=== PATIENT | male | born 1990 | race Caucasian/White ===

== ENCOUNTER 2019-12-12 23:25 | Emergency (ER) | payer SELFPAY ==
--- NOTE | 2019-12-12 23:46 | ER Document Report ---
ED Medical Screen (RME) - General Chief Complaint: Medical Clearance Stated Complaint: MEDICAL CLEARANCE Time Seen by Provider: 12/12/19 23:39 Primary Care Provider: ASIM JOYNER [Primary Care Provider] - Follow up as needed - HPI Notes: 12/12/19 23:44 28-year-old male to the emergency department with complaints of alcohol abuse and "psychosis". States he has been using alcohol since he was age 11. He states that currently he uses about half a bottle of vodka every single day. He states that when he tries to stop drinking alcohol he hears voices. He states that the voices do not tell him to hurt himself or others. He states that sometimes the voices will just last for a little while but then sometimes the last for days. He states that the last time he had versus was in September 2019. He states that he has been drinking today. He denies any SI or HI. I performed a brief medical screening exam on the patient determined that the patient needs further evaluation and management by main side provider. I have placed initial orders to help expedite care. Physical Exam - Vital signs Vitals: Temp Pulse Resp BP Pulse Ox 98.3 F 118 H 18 149/95 H 97 12/12/19 23:36 12/12/19 23:36 12/12/19 23:36 12/12/19 23:36 12/12/19 23:36 Course - Vital Signs Vital signs: Temp Pulse Resp BP Pulse Ox 98.3 F 118 H 18 149/95 H 97 12/12/19 23:36 12/12/19 23:36 12/12/19 23:36 12/12/19 23:36 12/12/19 23:36 Doctor's Discharge - Discharge Referrals: ASIM JOYNER [Primary Care Provider] - Follow up as needed
[2019-12-13 00:30] LABS: ABSOLUTE EOSINOPHILS # (AUTO) 0.2 10^3/uL (0.0-0.6); ABSOLUTE LYMPHOCYTES (AUTO) 3.7 10^3/uL (0.5-4.7); ABSOLUTE MONOCYTES (AUTO) 0.7 10^3/uL (0.1-1.4); ABSOLUTE NEUT (AUTO) 3.1 10^3/uL (1.7-8.2); BASOPHILS % (AUTO) 0.5 % (0-2); EOSINOPHILS % (AUTO) 2.8 % (0-6); HEMATOCRIT 42.7 % (37.9-51.0); HEMOGLOBIN 14.5 g/dL (13.5-17.0); LYMPHOCYTES % (AUTO) 47.4 % (13-45); MEAN CORPUSCULAR HEMOGLOBIN 31.8 pg (27.0-33.4); MEAN CORPUSCULAR HGB CONC 34.1 g/dL (32.0-36.0); MEAN CORPUSCULAR VOLUME 94 fl (80-97); MONOCYTES % (AUTO) 8.9 % (3-13); PLATELET COUNT 215 10^3/uL (150-450); RED BLOOD COUNT 4.57 10^6/uL (4.35-5.55); RED CELL DISTRIBUTION WIDTH 13.9 % (11.5-14.0); SEGMENTED NEUTROPHILS % (AUTO) 40.4 % (42-78); TOTAL CELLS COUNTED % (AUTO) 100 %; WHITE BLOOD COUNT 7.8 10^3/uL (4.0-10.5)
[2019-12-13 00:41] LABS: ALBUMIN 4.6 g/dL (3.5-5.0); ALKALINE PHOSPHATASE 67 U/L (38-126); ANION GAP 12 (5-19); ASPARTATE AMINO TRANSFERASE 37 U/L (17-59); BILIRUBIN,DIRECT 0.3 mg/dL (0.0-0.4); BILIRUBIN,TOTAL 0.5 mg/dL (0.2-1.3); BLOOD UREA NITROGEN 10 mg/dL (7-20); CALCIUM 8.9 mg/dL (8.4-10.2); CARBON DIOXIDE 31 mmol/L (22-30); CHLORIDE 102 mmol/L (98-107); GLUCOSE 98 mg/dL (75-110); POTASSIUM 3.9 mmol/L (3.6-5.0); TOTAL PROTEIN 7.7 g/dL (6.3-8.2)
[2019-12-13 00:52] LABS: ALCOHOL 423 mg/dL (NONE DETECTED)
[2019-12-13] MEDS ORDERED: NORMAL SALINE 1000 ML 1,000 ML IV ONE (01:10)
--- NOTE | 2019-12-13 02:47 | ER Document Report ---
ED Substance Abuse / Acc. OD - General TRAVEL OUTSIDE OF THE [place] IN LAST 30 DAYS: No - Related Data Home Medications: prozac, hydroxyzine, seroquel <HOA SMITH - Last Filed: 12/13/19 06:46> <VALORE - Last Filed: 12/13/19 14:04> - General Chief Complaint: ETOH Abuse Stated Complaint: MEDICAL CLEARANCE Time Seen by Provider: 12/12/19 23:39 Notes: Patient is a 28 year old male that comes to the emergency department for chief complaint of alcohol intoxication and wanting detox. Patient states that he was driven here by his mother and that "my mom wants me to get detox". I asked him if he wants detox, patient states "probably". Patient states he has been using alcohol since he was 11 years old, he states that he has had detox before in the past, he states that when he does not drink he feels "awful" but he denies withdrawal symptoms including vomiting, shaking, seizures. Patient states that when he stops drinking sometimes he hears voices but he denies hallucinations at this time. He denies SI or HI. He denies any daily medications. He denies recreational drugs. (HOA SMITH) - Related Data Allergies/Adverse Reactions: No Known Allergies Allergy (Unverified 12/13/19 00:15) Past Medical History - General Information source: Patient - Social History Smoking Status: Current Every Day Smoker Frequency of alcohol use: 1/2 bottle vodka daily for 10 yrs Drug Abuse: None Lives with: Family Family History: Reviewed & Not Pertinent Patient has suicidal ideation: No Patient has homicidal ideation: No - Immunizations Immunizations up to date: Yes Hx Diphtheria, Pertussis, Tetanus Vaccination: Yes <HOA SMITH - Last Filed: 12/13/19 06:46> Review of Systems - Review of Systems Constitutional: No symptoms reported EENT: No symptoms reported Cardiovascular: No symptoms reported Respiratory: No symptoms reported Gastrointestinal: No symptoms reported Genitourinary: No symptoms reported Male Genitourinary: No symptoms reported Musculoskeletal: No symptoms reported Skin: No symptoms reported Hematologic/Lymphatic: No symptoms reported Neurological/Psychological: See HPI <HOA SMITH - Last Filed: 12/13/19 06:46> Physical Exam <HOA SMITH - Last Filed: 12/13/19 06:46> - Vital signs Vitals: Temp Pulse Resp BP Pulse Ox 98.3 F 118 H 18 149/95 H 97 12/12/19 23:36 12/12/19 23:36 12/12/19 23:36 12/12/19 23:36 12/12/19 23:36 - Notes Notes: GENERAL: Sleeping but arouses easily to voice, responds to questions appropriately, calm. Smell of alcohol, slightly slurring words HEAD: Normocephalic, atraumatic. EYES: Pupils equal, round, and reactive to light. Extraocular movements intact. ENT: Oral mucosa dry, tongue midline. Oropharynx unremarkable. Airway patent. NECK: Full range of motion. Supple. Trachea midline. LUNGS: Clear to auscultation bilaterally, no wheezes, rales, or rhonchi. No respiratory distress. HEART: Regular rate and rhythm. No murmur ABDOMEN: Soft, non-tender. Non-distended. EXTREMITIES: Moves all 4 extremities spontaneously. No edema, normal radial and dorsalis pedis pulses bilaterally. No cyanosis. BACK: no cervical, thoracic, lumbar midline tenderness. No saddle anesthesia, normal distal neurovascular exam. Moves all extremities in full range of motion. NEUROLOGICAL: Alert and oriented to person, place, events. Slurring some words. Cranial nerves II through XII grossly intact. PSYCH: Poor eye contact and does not give details without asking very specific questions, otherwise unremarkable SKIN: Warm, dry, normal turgor. No rashes or lesions noted. (HOA SMITH) Course - Laboratory Result Diagrams: 12/13/19 00:10 12/13/19 00:10 <HOA SMITH - Last Filed: 12/13/19 06:46> - Laboratory Result Diagrams: 12/13/19 00:10 12/13/19 00:10 <LORE DE DIOS - Last Filed: 12/13/19 14:04> - Re-evaluation Re-evalutation: Patient is obviously intoxicated and telling me he is intoxicated. He is here for detox and states that he supposes he wants to go through with this. He denies SI or HI, patient is cooperative, patient sleeping unless I speak to him, he responds easily just to verbal stimuli. He also spontaneously awakens on occasion. Vital signs showing borderline tachycardia, he was given IV fluids, this did improve afterwards. CBC unremarkable, chemistry unremarkable including LFTs and sodium. Alcohol is very high at 432. Patient is too intoxicated to go to detox at this point, he will have to be monitored until he is more sober before he can be placed as he is requesting. I did discuss this with patient and he states appreciation and agreement with this plan. 12/13/19 06:46 Patient is much more sober now, however I estimate that it will be about 11 AM before his blood alcohol content is low enough for him to be placed in detox. Patient is asking about the details of last night. He states that he definitely needs detox and he is appreciative. He has no other complaints at this time. Patient pending medical clearance so he can go to detox. (HOA SMITH) - Vital Signs Vital signs: Temp Pulse Resp BP Pulse Ox 98.5 F 115 H 16 103/64 100 12/13/19 08:49 12/13/19 08:49 12/13/19 08:49 12/13/19 08:49 12/13/19 08:49 - Laboratory Laboratory results interpreted by me: 12/13/19 12/13/19 12/13/19 00:10 00:10 00:10 Lymph % (Auto) 47.4 H Seg Neutrophils % 40.4 L Carbon Dioxide 31 H Creatinine 0.44 L Salicylates < 1.0 L Acetaminophen < 10 L Serum Alcohol 423 H* - EKG Interpretation by Me Additional EKG results interpreted by me: EKG shows sinus tachycardia at a rate of 106, normal axis, no T wave inversions or ST segment changes in consecutive leads, QTC of 457 (HOA SMITH) Discharge <HOA SMITH - Last Filed: 12/13/19 06:46> <LORE DE DIOS - Last Filed: 12/13/19 14:04> - Discharge Clinical Impression: Alcohol dependence Qualifiers: Substance use status: with intoxication Complication of substance-induced condition: uncomplicated Qualified Code(s): F10.220 - Alcohol dependence with intoxication, uncomplicated Alcohol intoxication Qualifiers: Complication of substance-induced condition: uncomplicated Qualified Code(s): F10.920 - Alcohol use, unspecified with intoxication, uncomplicated Condition: Stable Disposition: PSYCH HOSP/UNIT Additional Instructions: At time of discharge your alcohol level was 169. At this is appropriate for admission to [facility]. You do have a bed available to you at 2 PM. Please go over there so you can receive the treatment that is needed. You were seen in the emergency department today for alcohol intoxication. Please return to the emergency room immediately if you experience any concerning symptoms including high fevers, severe headache, chest pain, difficulty breathing, abdominal pain, slurred speech, numbness or weakness in your arms or legs, or any other symptom that concerns you. [facility] [address] [phone]
[2019-12-13 03:27] LABS: ACETAMINOPHEN < 10 ug/mL (10-30); SALICYLATE < 1.0 mg/dL (2.0-20.0)
[2019-12-13 07:59] LABS: APPEARANCE,URINE CLEAR; BILIRUBIN,URINE NEGATIVE (NEGATIVE); COLOR,URINE YELLOW; GLUCOSE, URINE NEGATIVE (NEGATIVE); KETONES,URINE NEGATIVE (NEGATIVE); LEUKOCYTE ESTERASE,URINE NEGATIVE (NEGATIVE); NITRITE,URINE NEGATIVE (NEGATIVE); PROTEIN,URINE NEGATIVE (NEGATIVE); URINE SPECIFIC GRAVITY 1.013; UROBILINOGEN,URINE NEGATIVE mg/dL (<2.0)
[2019-12-13 08:12] LABS: URINE AMPHETAMINES SCREEN NEGATIVE; URINE BARBITURATES SCREEN NEGATIVE; URINE BENZODIAZEPINES SCREEN NEGATIVE; URINE COCAINE SCREEN NEGATIVE; URINE MARIJUANA (THC) SCREEN NEGATIVE; URINE METHADONE SCREEN NEGATIVE; URINE PHENCYCLIDINE SCREEN NEGATIVE
[2019-12-13] MEDS ORDERED: ONDANSETRON 4 MG TAB.RAPDIS PO ONE (11:09)
[2019-12-13] MEDS ORDERED: LORAZEPAM 1 MG TABLET PO ONE (11:09)
--- NOTE | 2019-12-13 11:11 | ER Document Report ---
Doctor's Note Notes: 12/13/19 11:09 Patient had his alcohol level redrawn and is currently pending. I did evaluate the patient at the bedside. Patient reports overall he just does not feel well. Patient reports slight nausea. Patient denies visual or auditory hallucinations. Patient reports he is feeling slightly jittery. Patient reports he is a very heavy drinker. Will give a dose of PO Ativan as well as Zofran. Patient aware that he will be going to [facility]. 12/13/19 11:42 Alcohol level was 169. Patient stable for discharge to [facility] as he does have a bed available to him. Did discuss this with the patient. 12/13/19 14:05 Patient tolerated Ativan well and is sleeping comfortably. Patient has had no vomiting. Patient stable for discharge at this time. Will check vital signs. Patient to go to [facility].
[2019-12-13 14:16] VITALS: BP 126/86
--- NOTE | 2019-12-13 22:03 | EKG REPORT ---
SEVERITY:- BORDERLINE ECG - SINUS TACHYCARDIA BORDERLINE Q WAVES IN LATERAL LEADS LATERAL Q WAVES, PROBABLY NORMAL VARIATION : Confirmed by: Margarito Whipple 13-Dec-2019 22:02:17
== END 2019-12-13 14:14 ==
LOC: ER 23:25
DX: F10.220 Alcohol dependence with intoxication, uncomplicated (principal); Y90.8 Blood alcohol level of 240 mg/100 ml or more; F17.200 Nicotine dependence, unspecified, uncomplicated; R00.0 Tachycardia, unspecified; R11.0 Nausea
CPT/HCPCS: 93005; 36415; 80307 ×4; 85025; 80053; 81001; 93010; S0119; J7030; 96360; 99284

== ENCOUNTER 2020-08-31 15:53 | Emergency (ER) | payer SELFPAY ==
--- NOTE | 2020-08-31 17:17 | ER Document Report ---
ED General - General Chief Complaint: Possible Overdose Stated Complaint: POSSIBLE OVERDOSE Time Seen by Provider: 08/31/20 17:16 TRAVEL OUTSIDE OF THE [place] IN LAST 30 DAYS: No - HPI Notes: 29-year-old male arrives via EMS from [place] after reported overdose. Per nursing patient known to use multiple substances including heroin, amphetamines, cocaine and alcohol. He did receive 8 mg IV Narcan via EMS. He vomited afterwards. All of information is provided through nursing. Patient currently states that he thought he was moving, appears to still be intoxicated. - Related Data Allergies/Adverse Reactions: No Known Allergies Allergy (Unverified 12/13/19 00:15) Past Medical History - General Information source: Emergency Med Personnel - Social History Smoking Status: Current Every Day Smoker Frequency of alcohol use: Heavy Drug Abuse: Cocaine, Heroin, Methamphetamine Family History: Other - Unable to obtain at this time - Immunizations Immunizations up to date: Yes Hx Diphtheria, Pertussis, Tetanus Vaccination: Yes Review of Systems - Review of Systems -: Yes ROS unobtainable due to patient's medical condition Physical Exam - Vital signs Vitals: Temp Pulse Resp BP Pulse Ox 98.2 F 108 H 16 119/86 H 97 08/31/20 16:15 08/31/20 16:15 08/31/20 16:15 08/31/20 16:15 08/31/20 16:15 - General Notes: Patient sleeping, arouses to loud voice, strong smell of alcohol coming from patient's breath - HEENT Head: Normocephalic, Atraumatic Pupils: PERRL - Respiratory Breath sounds: Normal - Cardiovascular Rhythm: Regular Heart sounds: Normal auscultation Normal capillary refill: Yes - Abdominal Tenderness: Nontender - Extremities General upper extremity: Normal inspection General lower extremity: Normal inspection - Neurological Notes: Sleepy, awakens to voice, moves all extremities, no gross deficits - Psychological Associated symptoms: Other - Intoxicated - Skin Skin Temperature: Warm Course - Re-evaluation Re-evalutation: 29-year-old male arrives from [place] after reported overdose. He did receive Narcan for presumed heroin. Had some vomiting afterwards. He appears to be clinically intoxicated, he has a strong smell of alcohol coming from his breath. He is sleeping but arouses to voice. Moves all extremities, pupils equal round and reactive, no signs of head trauma. Will check labs, give fluids and observe. 08/31/20 20:59 Ethanol has down trended below 250. He is appropriate to go back to [place] to continue his treatment at this time. - Vital Signs Vital signs: Temp Pulse Resp BP Pulse Ox 98.2 F 108 H 11 L 100/50 L 96 08/31/20 16:15 08/31/20 16:15 08/31/20 20:21 08/31/20 20:21 08/31/20 20:21 - Laboratory Result Diagrams: 08/31/20 16:07 08/31/20 16:07 Laboratory results interpreted by me: 08/31/20 08/31/20 16:07 16:07 WBC 10.8 H RBC 3.98 L MCV 103 H MCH 34.4 H RDW 14.5 H Eos % (Auto) 22.4 H Absolute Eos (auto) 2.4 H Seg Neutrophils % 40.6 L BUN 4 L Creatinine 0.46 L Discharge - Discharge Clinical Impression: Polysubstance abuse Alcohol intoxication Qualifiers: Complication of substance-induced condition: uncomplicated Qualified Code(s): F10.920 - Alcohol use, unspecified with intoxication, uncomplicated Disposition: REHAB FACILITY
[2020-08-31] MEDS ORDERED: RINGERS SOLUTION,LACTATED 1,000 ML IV ONE (17:24)
[2020-08-31 18:18] LABS: ABSOLUTE BASOPHILS # (AUTO) 0.1 10^3/uL (0.0-0.2); ABSOLUTE EOSINOPHILS # (AUTO) 2.4 10^3/uL (0.0-0.6); ABSOLUTE LYMPHOCYTES (AUTO) 2.9 10^3/uL (0.5-4.7); ABSOLUTE NEUT (AUTO) 4.4 10^3/uL (1.7-8.2); BASOPHILS % (AUTO) 0.8 % (0-2); EOSINOPHILS % (AUTO) 22.4 % (0-6); HEMATOCRIT 40.9 % (37.9-51.0); HEMOGLOBIN 13.7 g/dL (13.5-17.0); LYMPHOCYTES % (AUTO) 26.6 % (13-45); MEAN CORPUSCULAR HEMOGLOBIN 34.4 pg (27.0-33.4); MEAN CORPUSCULAR HGB CONC 33.4 g/dL (32.0-36.0); MEAN CORPUSCULAR VOLUME 103 fl (80-97); MONOCYTES % (AUTO) 9.6 % (3-13); PLATELET COUNT 242 10^3/uL (150-450); RED BLOOD COUNT 3.98 10^6/uL (4.35-5.55); RED CELL DISTRIBUTION WIDTH 14.5 % (11.5-14.0); SEGMENTED NEUTROPHILS % (AUTO) 40.6 % (42-78); TOTAL CELLS COUNTED % (AUTO) 100 %; WHITE BLOOD COUNT 10.8 10^3/uL (4.0-10.5)
[2020-08-31 18:35] LABS: ALCOHOL 294 mg/dL (NONE DETECTED); ANION GAP 13 (5-19); BLOOD UREA NITROGEN 4 mg/dL (7-20); CALCIUM 9.2 mg/dL (8.4-10.2); CARBON DIOXIDE 23 mmol/L (22-30); CHLORIDE 104 mmol/L (98-107); GLUCOSE 87 mg/dL (75-110); POTASSIUM 4.3 mmol/L (3.6-5.0)
[2020-08-31 21:05] VITALS: BP 122/92
[2020-08-31 21:49] LABS: APPEARANCE,URINE CLEAR; BILIRUBIN,URINE NEGATIVE (NEGATIVE); COLOR,URINE YELLOW; GLUCOSE, URINE NEGATIVE (NEGATIVE); KETONES,URINE NEGATIVE (NEGATIVE); LEUKOCYTE ESTERASE,URINE NEGATIVE (NEGATIVE); NITRITE,URINE NEGATIVE (NEGATIVE); PROTEIN,URINE NEGATIVE (NEGATIVE); URINE SPECIFIC GRAVITY 1.005
[2020-08-31 21:56] LABS: URINE AMPHETAMINES SCREEN NEGATIVE; URINE BARBITURATES SCREEN NEGATIVE; URINE BENZODIAZEPINES SCREEN NEGATIVE; URINE COCAINE SCREEN NEGATIVE; URINE MARIJUANA (THC) SCREEN NEGATIVE; URINE METHADONE SCREEN NEGATIVE; URINE PHENCYCLIDINE SCREEN NEGATIVE
--- OUTSIDE RECORDS SUMMARY | 2020-09-02 17:43 | XMS REPORT ---
:1990 Author Organization [facility] Address [address] [address] Care Team Providers Name Role Phone MICAELA Attending Clinician Unavailable Allergies, Adverse Reactions, Alerts Allergy Allergy Status Severity Reaction(s) Onset Inactive Treating C omments Name Type Date Date Clinician NKDA Allergy to Active Severe 2019-08 substance 00:00:0 0 NKDA Allergy to Inactive Mild 2010-08 Substance 00:00:0 0 Medications Ordered Filled Start Stop Current Ordering Indication Dosage Frequency Signature Comments Components Medication Medication Date Date Medication? Clinician (SIG) Name Name Ketorolac 2018- No 10 Three Tromethamin 07-04-18 Times A e 03:10: 00:00 Day 00 :00 Ketorolac No Oliverio 10 Three Tromethamin 07-04 [place] Pa Times A e (Toradol) 00:00: Day 10 Mg Tab 00 Acetaminoph 2012-10- No Every 4 Take for en/Hydrocod 2- 12-18 Hours As Pain one Bitart 12:14: 00:00 Needed 00 :00 Amoxicillin 2012-10- No 500 Twice A 2-03 08-27 Day 12:13: 00:00 00 :00 Amoxicillin 2012-10 No Dagoberto 500 Twice A 500 Mg - [place] Day Tablet 00:00: Pa-C 00 Acetaminoph 2012-10- No Dgaoberto Every 4 en/Hydrocod 2-03 12-18 [place] Hours As one Bitart 00:00: 00:00 Pa-C Needed (Vicodin 00 :00 5/500) 1 Each Tablet, 1-2 Tab Oral Fluoxetine Yes 60 Daily Hcl Hydroxyzine Yes 25 Three Hcl Times A Day as needed for Anxiety Quetiapine Yes 300 At Bedtime Fumarate Problems Condition Condition Condition Status Onset Resolution Last Treatin g Comments Name Details Category Date Date Treatment Clinician Date Internal Internal Problem Inactiv derangement derangement e 9-13 of left of left 03:11: knee knee 00 Procedures Procedure Date / Time Performed Performing Clinician Devic e EKG (electrocardiogram) 2019-08-26 00:00:00 Complete x-ray series of left knee 2018-07-04 00:00:00 OLIVERIO GUZMAN Results Test Description Test Time Test Comments Text Results Atomic Results Result Comments Urine color determination 2019-08-27 00:31:00 Test Item Value Reference Range Comments Urine Color (test code = 5778-6) ORANGE YELLOW Urine appearance eltccspmvfbhp9318-70-95 00:31:00 Test Item Value Reference Range Comments Urine Appearance (test code = 5767-9) CLOUDY CLEAR Urine glucose detection by test [id number] 00:31:00 Test Item Value Reference Range Comments Urine Glucose (UA) (test code = 36550-2) NEGATIVE NEGATIV E Urine total bilirubin detection by test [id number] 00:31:00 Test Item Value Reference Range Comments Urine Bilirubin (test code = 5770-3) MODERATE NEGATIVE Urine ketones detection by test [id number] 00:31:00 Test Item Value Reference Range Comments Urine Ketones (test code = 2514-8) 40 NEGATIVE Specific gravity of Urine by Refractometry vfoyxrglq5628-68-93 00:31:00 Test Item Value Reference Range Comments Urine Specific Ronan (test code = 07479-1) 1.024 1.0 10-1.025 Urine erythrocytes cxgzrlkna4958-39-87 00:31:00 Test Item Value Reference Range Comments Urine Occult Blood (test code = 75277-8) NEGATIVE NEG, TR ANNA Urine pH nuzmvgfwdwt6370-53-56 00:31:00 Test Item Value Reference Range Comments Urine pH (test code = 2756-5) 7.5 5.0-7.5 Urine protein detection by test etotm2404-19-33 00:31:00 Test Item Value Reference Range Comments Urine Protein (test code = 35678-7) 100 NEG, TRACE Urine urobilinogen xruggnseunq6168-18-07 00:31:00 Test Item Value Reference Range Comments Urine Urobilinogen (test code = 18765-7) 4.0 0.2 Urine nitrite efamvnkat0105-44-06 00:31:00 Test Item Value Reference Range Comments Urine Nitrate (test code = 51133-6) POSITIVE NEGATIVE Leukocyte esterase ur qzonvzji4122-86-15 00:31:00 Test Item Value Reference Range Comments Urine Leukocyte Esterase (test code = 5799-2) SMALL NE G, TRACE Automated urine sediment erythrocyte count by microscopy (number/high power field)2019-08-27 00:31:00 Test Item Value Reference Range Comments Urine RBC (Auto) (test code = 57670-6) 6-10 0-5 Urine leukocytes detection by automated gzncca4798-80-28 00:31:00 Test Item Value Reference Range Comments Urine WBC (Auto) (test code = 65716-2) 0-5 0-5 Urine squamous epithelial cells detection by automated xnvmsj0233-37-35 00:31:00 Test Item Value Reference Range Comments Urine Epithelial Cells (Auto) (test code = 77196-6) 1+ NONE SEEN Urine casts detection by automated mbvhyh3499-78-86 00:31:00 Test Item Value Reference Range Comments Urine Casts (Auto) (test code = 07682-6) 1-4 NONE SE EN Urine bacteria detection by automated owwxuy7028-53-51 00:31:00 Test Item Value Reference Range Comments Urine Bacteria (Auto) (test code = 83964-2) NONE SEEN NONE ,TRACE Urine amphetamine screening mnoz3515-35-62 00:31:00 Test Item Value Reference Range Comments Urine Amphetamines Screen (test code = 95698-7) Negative Negative Screening urine methylenedioxymethamphetamine (MDMA) ivkrhqerw1726-30-98 00:31:00 Test Item Value Reference Range Comments Urine MDMA Screen (Ecstasy) (test code = 73332-3) Negative NEGATIVE Urine barbiturates tcfriu2186-49-50 00:31:00 Test Item Value Reference Range Comments Urine Barbiturates Screen (test code = 028883955) Negative Negative Urine benzodiazepines detection by screening zooeei9838-69-64 00:31:00 Test Item Value Reference Range Comments Urine Benzodiazepines Screen (test code = 12298-2) Negative Negative Screening urine benzoylecgonine detection >150 ng/rk7791-98-82 00:31:00 Test Item Value Reference Range Comments Urine Cocaine Screen (test code = 92987-2) Negative Negat jacob Urine methadone zkvymt2977-42-81 00:31:00 Test Item Value Reference Range Comments Urine Methadone, Qualitative (test code = 20720-6) Negative Negative Urine opiates screening axcu3926-19-96 00:31:00 Test Item Value Reference Range Comments Urine Opiates Screen (test code = 87707-2) Negative Negat jacob Urine phencyclidine detection by screening wfcysu5668-56-27 00:31:00 Test Item Value Reference Range Comments Urine Phencyclidine Screen (test code = 20826-5) Negative Negative Urine cannabinoids detection by screening ttnkmt8050-00-99 00:31:00 Test Item Value Reference Range Comments Urine Marijuana (THC) Screen (test code = 76501-7) Positive Negative Qualitative urine tricyclic antidepressant gsaqkchwaly3852-33-41 00:31:00 Test Item Value Reference Range Comments Urine Tricyclic Antidepressants (test code = Positive Neg ative 78437-7) Urine drug screen comment zgawciwmwuoqpg4312-84-32 00:31:00 Test Item Value Reference Range Comments Drug Screen Comment (test SEE BELOW NOTE f or POSITIVES: These are code = 97437-0) preliminary resu lts for medical decision making only. The physician should interior painter whether or not confirmat ory testing is clinically indic ated. UA (urinalysis)2019-08-27 00:31:00 Test Item Value Reference Range Comments Urine Collection Type (test code = 65443-9) URN,CC Erythrocyte mean corpuscular hemoglobin concentration measurement (mass/volume) 2019-08-26 22:37:00 Test Item Value Reference Range Comments Mean Corpuscular Hemoglobin Concent (test code = 32.1 33.0-36.0 12839-2) Erythrocyte distribution width ohyod1188-45-13 22:37:00 Test Item Value Reference Range Comments Red Cell Distribution Width (test code = 54946-4) 13.5 10.0-14.5 Blood platelets count (number/volume)2019-08-26 22:37:00 Test Item Value Reference Range Comments Platelet Count (test code = 79583-8) 199 130-400 Neutrophils seg % brw0332-16-00 22:37:00 Test Item Value Reference Range Comments Neutrophils (%) (Auto) (test code = 22663-2) 68.7 42. 0-75.0 Automated lymphocyte count as percentage of total hvpexkicez9039-82-24 22:37:00 Test Item Value Reference Range Comments Lymphocytes (%) (Auto) (test code = 96838-0) 21.7 20. 0-51.0 [place] %2019-08-26 22:37:00 Test Item Value Reference Range Comments Monocytes (%) (Auto) (test code = AQT6400) 5.4 3.5-1 2.0 Eos %2019-08-26 22:37:00 Test Item Value Reference Range Comments Eosinophils (%) (Auto) (test code = XGA1360) 3.6 0.0 -2.0 Baso %2019-08-26 22:37:00 Test Item Value Reference Range Comments Basophils (%) (Auto) (test code = 03456-5) 0.6 0.0-1 .0 Absolute neutrophil bztom2411-76-14 22:37:00 Test Item Value Reference Range Comments Neutrophils # (Auto) (test code = RHO4089) 5.8 1.4-6 .5 Absolute lymphocyte dzcbk5738-97-70 22:37:00 Test Item Value Reference Range Comments Lymphocytes # (Auto) (test code = 06794-2) 1.8 1.2-3 .4 Absolute monocyte wummb0449-91-92 22:37:00 Test Item Value Reference Range Comments Monocytes # (Auto) (test code = IVQ7234) 0.5 0.1-0.6 Blood eosinophils count (number/volume)2019-08-26 22:37:00 Test Item Value Reference Range Comments Eosinophils # (Auto) (test code = 40319-9) 0.3 0.0-0 .5 Blood basophils count (number/volume)2019-08-26 22:37:00 Test Item Value Reference Range Comments Basophils # (Auto) (test code = 92522-7) 0.1 0.0-0.1 Blood automated leukocyte jktrv2716-44-40 22:37:00 Test Item Value Reference Range Comments White Blood Count (test code = 6690-2) 8.4 4.8-10.8 Serum or plasma glucose measurement (mass/volume)2019-08-26 22:37:00 Test Item Value Reference Range Comments Random Glucose (test code = 2345-7) 117 74-99 Serum or plasma urea nitrogen measurement (mass/volume)2019-08-26 22:37:00 Test Item Value Reference Range Comments Blood Urea Nitrogen (test code = 3094-0) 17 7-18 Serum or plasma creatinine measurement (mass/volume)2019-08-26 22:37:00 Test Item Value Reference Range Comments Creatinine (test code = 2160-0) 0.76 0.60-1.30 Blood urea nitrogen/creatinine mass pilhl8404-81-55 22:37:00 Test Item Value Reference Range Comments BUN/Creatinine Ratio (test code = 28905-8) 22.4 10-20 Estimated glomerular filtration rate (GFR) non- Vfvhccvw1233-72-06 22:37:00 Test Item Value Reference Range Comments Estimated GFR (Non- > 60 60- Refer ence Range: > or = Bahraini (test code = 41460-6) 6 0Units: mL/min/1.73 g6Kjlrdemw MDRD Study Group Equation Used Estimated glomerular filtration rate (GFR) Rkghardc8666-22-56 22:37:00 Test Item Value Reference Range Comments Estimated GFR () > 60 60- Reference Range: > or = (test code = 411894998) 60Units: mL/min/1.73 i4Kzrmiaes MDRD Study Group Equation Used Serum or plasma sodium measurement (mass or moles/volume)2019-08-26 22:37:00 Test Item Value Reference Range Comments Sodium Level (test code = 2951-2) 136 136-145 Serum or plasma potassium measurement (moles/volume)2019-08-26 22:37:00 Test Item Value Reference Range Comments Potassium Level (test code = 2823-3) 3.3 3.5-5.1 Serum or plasma chloride measurement (moles/volume)2019-08-26 22:37:00 Test Item Value Reference Range Comments Chloride Level (test code = 2075-0) 98 98-107 Blood erythrocytes count (number/volume)2019-08-26 22:37:00 Test Item Value Reference Range Comments Red Blood Count (test code = 81256-3) 4.53 4.6-6.1 Serum or plasma total carbon dioxide measurement (moles/volume)2019-08-26 22:37:00 Test Item Value Reference Range Comments Carbon Dioxide Level (test code = 2028-9) 29 21-32 Serum or plasma anion fmi5617-00-82 22:37:00 Test Item Value Reference Range Comments Anion Gap (test code = 62792-4) 9.0 4-16 Osmolality of Serum or Plasma by gygnkkzntak1676-23-01 22:37:00 Test Item Value Reference Range Comments Calculated Osmolality (test code = 81746-5) 274 280- 300 Serum or plasma calcium measurement (mass/volume)2019-08-26 22:37:00 Test Item Value Reference Range Comments Calcium Level (test code = 42208-7) 9.7 8.5-10.1 Serum or plasma protein measurement (mass/volume)2019-08-26 22:37:00 Test Item Value Reference Range Comments Total Protein (test code = 2885-2) 7.8 6.4-8.2 Serum or plasma albumin measurement (mass/volume)2019-08-26 22:37:00 Test Item Value Reference Range Comments Albumin (test code = 1751-7) 4.1 3.5-5.0 Serum or plasma total bilirubin measurement (mass/volume)2019-08-26 22:37:00 Test Item Value Reference Range Comments Total Bilirubin (test code = 1975-2) 1.5 0.2-1.0 Serum or plasma aspartate aminotransferase measurement (enzymatic activity/volume)2019-08-26 22:37:00 Test Item Value Reference Range Comments Aspartate Amino Transf (AST/SGOT) (test code = 1920-8) 36 15-37 Serum or plasma alanine aminotransferase measurement (enzymatic activity/volume) 2019-08-26 22:37:00 Test Item Value Reference Range Comments Alanine Aminotransferase (ALT/SGPT) (test code = 41 13-61 1742-6) Serum or plasma alkaline phosphatase measurement (enzymatic activity/volume) 2019-08-26 22:37:00 Test Item Value Reference Range Comments Alkaline Phosphatase (test code = 6768-6) 82 50-136 Blood hemoglobin measurement (mass/volume)2019-08-26 22:37:00 Test Item Value Reference Range Comments Hemoglobin (test code = 718-7) 14.4 14.0-18.0 Blood hematocrit (volume fraction)2019-08-26 22:37:00 Test Item Value Reference Range Comments Hematocrit (test code = 11586-3) 44.8 42.0-52.0 Serum or plasma ethanol measurement (mass/volume)2019-08-26 22:37:00 Test Item Value Reference Range Comments Ethyl Alcohol Level (test code < 3.0 0- N ormal Value Indicated by a = 5643-2) Result of <3 Automated erythrocyte mean corpuscular volume (MCV) mtksomlxynb3215-24-63 22:37:00 Test Item Value Reference Range Comments Mean Corpuscular Volume (test code = 787-2) 98.8 80.0 -96.0 [id number] 22:37:00 Test Item Value Reference Range Comments Mean Corpuscular Hemoglobin (test code = WXZ4961) 31.7 27.0-32.0 EKG EMP TECHELECTROCARDIOGRAPHIC REPORTNAME: SABI MUSTAFA III ROOM: [facility].HOLD [id number]: [id number] PT TYPE: REG ERDOB: 1990 28 M [place] ACCT NUMBER: [id number] DATE: 08/26/19Heart Rate: 101 bpmPRInterval: 100 msQRSDuration: 92 msQTInterval: 332 msQTc: 403 msPAxis: 76QrsAxis: 76TAxis: 59sedSee scanned ECG in [facility] for ED Physician interpreted copy. KNEE LT COMPLETEPAT NAME: SABI MUSTAFA III : 1990[address]: [address] SEX: MPHONE: AGE: 27PRIORITY: ERLOCATION: [facility] PHY: OLIVERIO GUZMAN, EMERGENCYMR#: [id number] PT CLASS: REG ERDATE OF EXAM: 07/04/2018EXAMINATION: KNEE LT COMPLETEExamination: Left knee 4 viewsComparison: None.Indication: Pain. Patient injured knee while playing with brother.Findings: 4 views of the left knee demonstrate the bony structures to be grossly intact withoutevidence of acute fracture or dislocation. Joint spaces well-maintained. Soft tissues are intact. Nosignificant joint effusion.Impression: 1. No acute osseous abnormality identified. No acute fracture or dislocation.Final report electronically signed by: Leatha Tomlin MDINTERPRETING PHYSICIAN: LEATHA TOMLIN MDThis document has been electronically signed by LEATHA TOMLIN MD on 07/04/2018 03:11:07.Order # [id number]/ 0311 Assessments Condition Name Status Diagnosis Date Treating Clinici an History of alcohol abuse Active Encounters Start End Encounter Admission Attending Care Care Encounter Date/Time Date/Time Type Type Clinicians Facility Department ID 2019-08-26 2019-08-[address] [facility] April [id number] 22:53:00 18:45:00 [facility] 64 Room [facility] 2018-07-04 2018-07-04 [id number] 03:12:00 03:12:[address] Payers Payer Name Policy Type Policy Number Effective Date Expiration D ate Self Pay Social History Social History Observation Description Sex Male Vital Signs Vital Name Observation Time Observation Value Comments WEIGHT 2019-08-26 22:53:00 67.436627 kg HEIGHT 2019-08-26 22:53:00 180.330843 cm WEIGHT 2018-07-04 03:12:00 73.780743 kg HEIGHT 2018-07-04 03:12:00 182.089900 cm Hospital Discharge Instructions No hospital discharge instruction information available.
== END 2020-08-31 21:31 ==
LOC: ER 15:53
DX: R11.10 Vomiting, unspecified (principal); F10.120 Alcohol abuse with intoxication, uncomplicated; F14.10 Cocaine abuse, uncomplicated; F15.10 Other stimulant abuse, uncomplicated; F11.10 Opioid abuse, uncomplicated; F17.200 Nicotine dependence, unspecified, uncomplicated
CPT/HCPCS: 99284; 96360; 36415; 80307 ×2; 85025; 80048; 81001; J7120